=== PATIENT | male | born 1960 | race Caucasian/White ===

== ENCOUNTER → 2024-10-08 07:03 | Outpatient (REF) | payer MEDICARE, BC, SELFPAY | LOC: RAD 07:03 | PROVIDERS: ATTENDING PHYSICIAN Family Medicine | DX: R10.32 Left lower quadrant pain (principal) | CPT/HCPCS: 74177; Q9967 ==

== ENCOUNTER 2024-11-17 13:48 | Emergency (ER) | payer MEDICARE, BC, SELFPAY ==
[2024-11-17 13:51] VITALS: BP 157/84
--- NOTE | 2024-11-17 15:29 | ED.GENMED ---
History of Present Illness
General
Chief Complaint: Musculo-Skeletal Complaint
Time Seen by Provider: 11/17/24 14:56
History of Present Illness
History of Present Illness:
64-year-old male presenting to the emergency department for left knee pain. Patient reports he was walking several weeks ago and thinks that he tweaked his left knee with some generalized pain with ambulation. Saw his primary care doctor last
week, gave him a prescription for an x-ray. He has been ambulating without difficulty, however yesterday went downstairs and with some axial load, had increased pain and swelling. He stayed off of his leg all day yesterday, iced his leg, has been
taking Tylenol and Motrin with some improvement. Denies numbness or tingling. Denies weakness. Denies fever or recent illness. Denies additional medical complaints
Past History
Past History
ED Past Medical History: Cancer, HTN and NIDDM
ED Past Surgical History: Orthopedic and Urological; Negative Appendectomy, Bowel resection, Brain or Cardiac
Social History
Tobacco: Non-smoker
Alcohol: Occasional
Drug: None
Personal:
Living: with family
Employment: Employed
Family History
Family History: Other
Phy Exam
Physical Exam
Physical Exam:
General: Well-appearing, no clinical signs of dehydration, nontoxic and in no acute distress
HEENT: protecting airway
Neck: appears supple
CV: Normal heart rate, regular rhythm
Resp: No accessory muscle use, no increased work of breathing
Abd: no distension
Extremities: No deformities, no swelling, no erythema, pulses and sensation intact. Range of motion grossly intact. No palpable tenderness.
Neuro: alert, no focal neurologic deficit
: deferred
Rectal: deferred
Psych: Normal affect
Skin: Intact
Course
Orders/Labs/Results
Orders:
Orders
11/17/24 13:57
Knee, Left 4 or More Views [CR Knee - Left 4 Or More View*] Urgent
Comment:
Reason For Exam: pain
Vital Signs
Initial and Last Documented VS:
Initial Vital Signs
Temp Pulse Resp BP Pulse Ox
98 F 72 16 157/84 100
11/17/24 13:51 11/17/24 13:51 11/17/24 13:51 11/17/24 13:51 11/17/24 13:51
Last Documented Vital Signs
Temp Pulse Resp BP Pulse Ox
98 F 72 16 157/84 100
11/17/24 13:51 11/17/24 13:51 11/17/24 13:51 11/17/24 13:51 11/17/24 13:51
MDM/Problems Addressed
MDM/Problems Addressed:
64-year-old male presenting for left knee pain. Vital signs on arrival are significant for mild hypertension.
On exam patient is resting comfortably, no acute distress. Overall benign examination of the left knee without any swelling or erythema. No warmth on palpation. No palpable tenderness. Range of motion is grossly intact and distal sensation and
pulses intact. No infectious findings, no neurovascular compromise, no concern for any traumatic severe injury. 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 At this time
suspect possible ligamentous injury. Advised [id number] use of a knee brace and continue Tylenol and Motrin as needed for pain, as well as outpatient orthopedic follow-up for potential MRI imaging. Otherwise feel stable for discharge.
Return precautions discussed and patient and verbalized understanding
*Critical Care Note
Total Time (30-74mins, 75-104mins- exclusive of procedures): Not Applicable
ED Attending Note
-
Portions of this chart may have been created with voice recognition software.� Occasional wrong word or��sound alike� substitutions may have occurred due to the inherent limitations of voice recognition software.
Discharge Plan
Departure
Prescriptions:
No Action
glipizide 10 MG tablet extended release 24hr
10 mg PO DAILY
tamsulosin [Flomax] 0.4 MG capsule
0.4 mg PO HS
lisinopril 10 MG tablet
10 mg PO DAILY
finasteride 5 MG tablet
5 mg PO DAILY
multivitamin 1 EACH tablet
1 ea PO DAILY
aspirin [Aspir-Low] 81 MG tablet,delayed release (DR/EC)
81 mg PO DAILY
diphenhydramine HCl [Banophen] 25 MG capsule
25 mg PO DAILY
cholecalciferol (vitamin D3) [Vitamin D3] 1,000 UNIT capsule
1,000 unit PO DAILY
omega [id number]-fish oil [Fish Oil] 1 EACH capsule
2 ea PO DAILY
red yeast rice 600 MG tablet
1,200 mg PO DAILY
phenazopyridine 200 MG tablet
200 mg PO TIDPRN PRN (Reason: dysuria) Qty: 30 3RF
Referrals:
Renard Garrido MD [Family Provider] -
Interventions
Interventions:
*Risk Screen - Suicide Last Done: 11/17/24 13:52
*General Assessment Last Done: 11/17/24 14:51
*Neglect/Abuse Screening Last Done: 11/17/24 13:52
*ED- Fall Risk Assessment Last Done: 11/17/24 14:51
*ED COVID-19 Vaccine History Last Done: 11/17/24 14:51
ED-Musculoskeletal Assessment Last Done: 11/17/24 14:53
Discharge Date and Time
Print Language: DUTCH
== END 2024-11-17 16:08 | disposition home or self-care (01) ==
LOC: EMR 13:48
PROVIDERS: EMERGENCY PHYSICIAN Student in an Organized Health Care Education/Training Program; FAMILY PHYSICIAN Family Medicine
DX: M25.562 Pain in left knee (principal); E11.9 Type 2 diabetes mellitus without complications; I10 Essential (primary) hypertension
CPT/HCPCS: 99283; 73564

== ENCOUNTER → 2024-12-12 15:19 | Outpatient (REF) | payer MEDICARE, BC, SELFPAY | LOC: RCS 15:19 | PROVIDERS: ATTENDING PHYSICIAN Orthopaedic Surgery; FAMILY PHYSICIAN Family Medicine | DX: Z01.818 Encounter for other preprocedural examination (principal) | CPT/HCPCS: 93005 ==

== ENCOUNTER → 2025-04-08 08:20 | Outpatient (REF) | payer MEDICARE, BC, SELFPAY | LOC: HWRAD 08:20 | PROVIDERS: ATTENDING PHYSICIAN Family Medicine | DX: E11.8 Type 2 diabetes mellitus with unspecified complications (principal); I10 Essential (primary) hypertension; E78.2 Mixed hyperlipidemia | CPT/HCPCS: 75571 ==

== ENCOUNTER → 2025-06-12 12:45 | Outpatient (REF) | payer MEDICARE, BC, SELFPAY | LOC: HWRCS 12:45 | PROVIDERS: ATTENDING PHYSICIAN Internal Medicine Cardiovascular Disease; FAMILY PHYSICIAN Family Medicine | DX: R93.1 Abnormal findings on diagnostic imaging of heart and coronary circulation (principal); R06.09 Other forms of dyspnea | CPT/HCPCS: 93306 ==

== ENCOUNTER → 2025-06-19 07:06 | Outpatient (REF) | payer MEDICARE, BC, SELFPAY | LOC: HWRCS 07:06 | PROVIDERS: ATTENDING PHYSICIAN Internal Medicine Cardiovascular Disease; FAMILY PHYSICIAN Family Medicine | DX: R93.1 Abnormal findings on diagnostic imaging of heart and coronary circulation (principal); R06.09 Other forms of dyspnea | CPT/HCPCS: 78452; 93017; A9500 ==